=== PATIENT | male | born 1940 | race Caucasian/White ===

== ENCOUNTER 2020-10-13 16:04 | Inpatient (IN) | payer BC ==
[2020-10-13] MEDS ORDERED: ONDANSETRON 4 MG/2 ML VIAL IVPUSH ONE (16:39)
[2020-10-13] MEDS ORDERED: SODIUM CHLORIDE 0.9% 500 ML INFUS.BAG IV ONE ×2 (16:39→17:53)
[2020-10-13] MEDS ORDERED: FAMOTIDINE 20 MG/50 ML IVPB 20 MG/50 ML MG IVPB ONE ×2 (16:39→16:45)
[2020-10-13] MEDS ORDERED: ONDANSETRON 4 MG/2 ML VIAL ONE (16:45)
[2020-10-13 17:08] LABS: BASO % 0.4 % (0-2.0); EOS % 0.9 % (0-4.5); HEMATOCRIT 35.8 % (35.4-49); HEMOGLOBIN 12.4 GM/dL (11.7-16.9); LYMPH % 12.4 % (8-40); MCH 34.7 pg (25.7-33.7); MCHC 34.6 g/dl (32.0-35.9); MEAN CELL VOLUME 100.3 fl (80-96); MEAN PLT VOLUME 7.5 fl (7.5-11.1); MONO % 13.5 % (3.8-10.2); NEUT % 72.8 % (42.8-82.8); PLATELET COUNT 175 10^3/uL (134-434); RBC 3.57 M/mm3 (4.00-5.60); RDW 14.3 % (11.9-15.9); WHITE BLOOD COUNT 3.2 K/mm3 (4.0-10.0)
[2020-10-13 17:39] LABS: ALBUMIN 3.5 g/dl (3.4-5.0)
[2020-10-13 17:40] LABS: BLOOD UREA NITROGEN 17.6 mg/dL (7-18); MAGNESIUM 1.6 mg/dL (1.8-2.4)
[2020-10-13 17:43] LABS: CREATININE 1.2 mg/dL (0.55-1.3); PHOSPHOROUS 2.4 mg/dL (2.5-4.9)
[2020-10-13 17:44] LABS: TOT PROT 6.4 g/dl (6.4-8.2)
[2020-10-13] MEDS ORDERED: METOCLOPRAMIDE HCL INJECTION 10 MG/2 ML VIAL IVPUSH ONE (17:51)
[2020-10-13] MEDS ORDERED: morphine CARPU-JECT 4 MG/1 ML DISP.SYRIN IVPUSH ONE (17:52)
[2020-10-13] MEDS ORDERED: SODIUM CHLORIDE 1,000 ML IV STA (17:59)
[2020-10-13] MEDS ORDERED: morphine SULFATE 4 MG/ML VIAL ONE (18:03)
[2020-10-13] MEDS ORDERED: METOCLOPRAMIDE HCL INJECTION 10 MG/2 ML VIAL ONE (18:03)
[2020-10-13] MEDS ORDERED: MAGNESIUM SULF 50% (8.12 MEQ/2 ML-1 GM VIAL) IVPB ONE (19:00)
[2020-10-13 19:32] LABS: EPI CELLS 7 /uL (0-25.1); HYALINE CASTS 3 /uL (0-3.1); PH,URINE 5.5 (5.0-8.0); URINE APPEARANCE CLEAR; URINE BACTERIA 58 /uL (0-1359); URINE BILIRUBIN NEGATIVE (NEGATIVE); URINE COLOR YELLOW; URINE GLUCOSE (UA) NEGATIVE (NEGATIVE); URINE KETONE TRACE (NEGATIVE); URINE LEUK ESTERASE 1+ (NEGATIVE); URINE NITRITE NEGATIVE (NEGATIVE); URINE PROTEIN 2+ (NEGATIVE); URINE RBC 10 /uL (0-23.9); URINE UROBILINOGEN 0.2 mg/dL (0.2-1.0); URINE WBC 30 /uL (0-25.8)
[2020-10-13] MEDS ORDERED: MAGNESIUM SULFATE IN WATER 2 GM/50 ML IVPB IVPB ONE (19:46)
[2020-10-13] MEDS ORDERED: VANCOMYCIN 1 GM in D5W (PRE-DOCKED) 1,000 MG/250 ML IVPB ONE (22:43)
[2020-10-13] MEDS ORDERED: PIPERACILLIN/TAZOB 4.5 GM 4.5 GM in DEXTROSE 5%-WATER 100 ML IVPB ONE (22:43)
[2020-10-13] MEDS ORDERED: VANCOMYCIN 1 GRAM (PRE-DOCKED) 1,000 MG/250 ML BAG IVPB ONE (22:48)
[2020-10-13] MEDS ORDERED: PIPERACILLIN/TAZOB 4.5 GM 4.5 GM/100 ML BAG IVPB ONE (23:29)
[2020-10-14] MEDS ORDERED: ONDANSETRON 4 MG/2 ML VIAL IVPUSH PRN (03:14)
[2020-10-14] MEDS ORDERED: DEXTROSE 5%-0.45% SALINE 1,000 ML IV SCH (03:15)
[2020-10-14] MEDS ORDERED: ALBUTEROL SO4 0.083% IH SOL 2.5 MG/3 ML VIAL.NEB. NEB ONE (05:38)
[2020-10-14 09:51] LABS: BASO % 0.1 % (0-2.0); EOS % 0.1 % (0-4.5); HEMOGLOBIN 10.3 GM/dL (11.7-16.9); LYMPH % 8.3 % (8-40); MCH 35.2 pg (25.7-33.7); MCHC 35.6 g/dl (32.0-35.9); MEAN CELL VOLUME 98.9 fl (80-96); MEAN PLT VOLUME 7.7 fl (7.5-11.1); MONO % 11.7 % (3.8-10.2); NEUT % 79.8 % (42.8-82.8); PLATELET COUNT 143 10^3/uL (134-434); RBC 2.93 M/mm3 (4.00-5.60); RDW 13.8 % (11.9-15.9); WHITE BLOOD COUNT 2.9 K/mm3 (4.0-10.0)
[2020-10-14 10:17] LABS: CALCIUM 7.1 mg/dL (8.5-10.1)
[2020-10-14 10:18] LABS: BLOOD UREA NITROGEN 20.8 mg/dL (7-18)
[2020-10-14 10:21] LABS: CREATININE 1.3 mg/dL (0.55-1.3)
[2020-10-14 10:22] LABS: BILIRUBIN,TOTAL 1.3 mg/dL (0.2-1)
[2020-10-14 10:23] LABS: TOT PROT 4.8 g/dl (6.4-8.2)
[2020-10-14 10:24] LABS: ALBUMIN 2.7 g/dl (3.4-5.0)
[2020-10-14 12:30] LABS: ANISOCYTOSIS 1+; MACROCYTOSIS 0; OVALOCYTE 1+; PLATELET ESTIMATE DECREASED; TOXIC GRANULATION 2+
[2020-10-14] MEDS ORDERED: ALPRAZolam 1 MG TABLET PO ONE (13:39)
[2020-10-14] MEDS ORDERED: ONDANSETRON *ODT* 4 MG TABLET SL PRN (13:41)
[2020-10-14] MEDS ORDERED: SODIUM CHLORIDE 500 ML IV STA (16:05)
[2020-10-14] MEDS ORDERED: NAPH,MB-DB/K PH,MBDB POWDER PACKET PO SCH (16:15)
[2020-10-14] MEDS ORDERED: POTASSIUM CHLORIDE TABS 20 MEQ TABLET.ER (FP) PO ONE (16:30)
[2020-10-14] MEDS ORDERED: DEXTROSE 5%-WATER - 50 ML IVPB ONE (17:25)
[2020-10-14] MEDS ORDERED: PIPERACILLIN/TAZOBACTAM 3.375 GM VIAL IVPB ONE (17:25)
[2020-10-14] MEDS ORDERED: PT OWN MED DRAWER 7, Y5N ONE ×3 (19:12→21:18)
[2020-10-14] MEDS ORDERED: LOPERAMIDE HCL 2 MG CAPSULE PO PRN (19:40)
[2020-10-14] MEDS ORDERED: LOPERAMIDE HCL 2 MG CAPSULE PO ONE (19:45)
[2020-10-14] MEDS: DEXTROSE 5%-NORMAL SALINE 1,000 ML IV SCH (20:05)
[2020-10-14] MEDS: ONDANSETRON 4 MG/2 ML VIAL IVPB PRN (20:05)
[2020-10-14] MEDS: PIPERACILLIN/TAZOB 3.375 GM 3.375 GM in DEXTROSE 5%-WATER - 50 ML IVPB SCH (20:38)
[2020-10-14] MEDS: CARVEDILOL 25 MG TABLET (FP) PO SCH (21:15)
[2020-10-14] MEDS: SACUBITRIL/VALSARTAN 49 MG-51 MG TABLET PO SCH (21:20)
[2020-10-14] MEDS: APIXABAN 5 MG TABLET PO SCH (21:20)
[2020-10-14] MEDS: ATORVASTATIN CA 40 MG TABLET (FP) PO SCH (21:20)
[2020-10-14] MEDS: MINERAL OIL/PET HY-PHL TOPICAL OINTMENT 454 GM JAR TP SCH (22:31)
[2020-10-15] MEDS ORDERED: PIPERACILLIN/TAZOBACTAM 3.375 GM VIAL IVPB ONE ×3 (02:22→15:14)
[2020-10-15] MEDS ORDERED: DEXTROSE 5%-WATER - 50 ML IVPB ONE ×3 (02:22→15:14)
[2020-10-15] MEDS: PIPERACILLIN/TAZOB 3.375 GM 3.375 GM in DEXTROSE 5%-WATER - 50 ML IVPB SCH ×3 (02:26→17:24)
[2020-10-15] MEDS: DEXTROSE 5%-NORMAL SALINE 1,000 ML IV SCH (06:55)
[2020-10-15] MEDS ORDERED: PT OWN MED DRAWER 7, Y5N ONE ×4 (09:12→21:08)
[2020-10-15] MEDS: APIXABAN 5 MG TABLET PO SCH ×2 (09:31→21:12)
[2020-10-15] MEDS: CARVEDILOL 25 MG TABLET (FP) PO SCH ×2 (09:31→21:12)
[2020-10-15] MEDS: FAMOTIDINE 40 MG TABLET PO SCH (09:31)
[2020-10-15] MEDS: MECLIZINE HCL 25 MG TABLET (FP) PO PRN ×2 (09:31→21:59)
[2020-10-15] MEDS: SACUBITRIL/VALSARTAN 49 MG-51 MG TABLET PO SCH ×2 (09:32→21:59)
[2020-10-15 09:33] LABS: HEMATOCRIT 31.4 % (35.4-49); HEMOGLOBIN 10.8 GM/dL (11.7-16.9); MCH 34.9 pg (25.7-33.7); MCHC 34.5 g/dl (32.0-35.9); MEAN CELL VOLUME 101.1 fl (80-96); PLATELET COUNT 171 10^3/uL (134-434); RBC 3.11 M/mm3 (4.00-5.60); RDW 14.4 % (11.9-15.9); WHITE BLOOD COUNT 4.8 K/mm3 (4.0-10.0)
[2020-10-15] MEDS: MINERAL OIL/PET HY-PHL TOPICAL OINTMENT 454 GM JAR TP SCH ×2 (09:33→21:19)
[2020-10-15 09:35] LABS: EOS % 0.9 % (0-4.5); HEMATOCRIT 30.9 % (35.4-49); HEMOGLOBIN 10.9 GM/dL (11.7-16.9); LYMPH % 8.7 % (8-40); MCH 35.4 pg (25.7-33.7); MCHC 35.2 g/dl (32.0-35.9); MEAN CELL VOLUME 100.6 fl (80-96); MEAN PLT VOLUME 7.9 fl (7.5-11.1); MONO % 14.6 % (3.8-10.2); NEUT % 75.8 % (42.8-82.8); PLATELET COUNT 170 10^3/uL (134-434); RBC 3.07 M/mm3 (4.00-5.60); RDW 13.8 % (11.9-15.9); WHITE BLOOD COUNT 4.7 K/mm3 (4.0-10.0)
[2020-10-15 09:40] LABS: INR 1.94 (0.83-1.09); PROTHROMBIN TIME (PATIENT) 23.4 SEC (9.7-13.0)
[2020-10-15 09:42] LABS: ACTIVATED PTT 27.6 SECONDS (25.2-36.5)
[2020-10-15] MEDS ORDERED: PIPERACILLIN/TAZOB 3.375 GM 3.375 GM in DEXTROSE 5%-WATER - 50 ML IVPB SCH (10:00)
[2020-10-15] MEDS ORDERED: FUROSEMIDE 40 MG TABLET (FP) PO SCH (10:00)
[2020-10-15 10:04] LABS: ALBUMIN 2.7 g/dl (3.4-5.0); BLOOD UREA NITROGEN 27.2 mg/dL (7-18); CALCIUM 7.3 mg/dL (8.5-10.1); MAGNESIUM 2.2 mg/dL (1.8-2.4)
[2020-10-15 10:05] LABS: BILIRUBIN,TOTAL 0.7 mg/dL (0.2-1); TOT PROT 4.9 g/dl (6.4-8.2)
[2020-10-15 10:07] LABS: CREATININE 1.5 mg/dL (0.55-1.3)
[2020-10-15 11:29] LABS: ANISOCYTOSIS 0; MACROCYTOSIS 0; PLATELET ESTIMATE NORMAL
[2020-10-15] MEDS ORDERED: D5-1/2NS+10 MEQ KCL - 10 MEQ/1,000 ML INFUS.BAG IV SCH (12:15)
[2020-10-15] MEDS: DEXTROSE 5%-LACTATED RINGERS 1,000 ML IV SCH (15:48)
[2020-10-15] MEDS: ZOLPIDEM TARTRATE 5 MG TABLET PO PRN (21:12)
[2020-10-15] MEDS: ATORVASTATIN CA 40 MG TABLET (FP) PO SCH (21:12)
[2020-10-16] MEDS ORDERED: PIPERACILLIN/TAZOBACTAM 3.375 GM VIAL IVPB ONE ×2 (01:07→09:14)
[2020-10-16] MEDS ORDERED: DEXTROSE 5%-WATER - 50 ML IVPB ONE ×2 (01:07→09:15)
[2020-10-16] MEDS: PIPERACILLIN/TAZOB 3.375 GM 3.375 GM in DEXTROSE 5%-WATER - 50 ML IVPB SCH ×2 (01:19→09:18)
[2020-10-16] MEDS ORDERED: PT OWN MED DRAWER 7, Y5N ONE (02:31)
[2020-10-16] MEDS: DEXTROSE 5%-LACTATED RINGERS 1,000 ML IV SCH ×2 (05:36→18:34)
[2020-10-16] MEDS: LOPERAMIDE HCL 2 MG CAPSULE PO PRN ×4 (07:53→18:35)
[2020-10-16 08:40] LABS: BASO % 0.1 % (0-2.0); EOS % 2.4 % (0-4.5); HEMATOCRIT 28.8 % (35.4-49); HEMOGLOBIN 10.1 GM/dL (11.7-16.9); LYMPH % 10.6 % (8-40); MCH 35.2 pg (25.7-33.7); MEAN CELL VOLUME 100.6 fl (80-96); MEAN PLT VOLUME 7.9 fl (7.5-11.1); NEUT % 68.9 % (42.8-82.8); PLATELET COUNT 171 10^3/uL (134-434); RBC 2.86 M/mm3 (4.00-5.60); RDW 14.1 % (11.9-15.9); WHITE BLOOD COUNT 3.8 K/mm3 (4.0-10.0)
[2020-10-16] MEDS: SACUBITRIL/VALSARTAN 49 MG-51 MG TABLET PO SCH ×2 (09:07→21:04)
[2020-10-16] MEDS: CARVEDILOL 25 MG TABLET (FP) PO SCH ×2 (09:07→21:04)
[2020-10-16] MEDS ORDERED: DEXTROSE 5%-LACTATED RINGERS 1,000 ML IV SCH (09:08)
[2020-10-16 09:10] LABS: CALCIUM 7.1 mg/dL (8.5-10.1)
[2020-10-16 09:11] LABS: ALBUMIN 2.3 g/dl (3.4-5.0); BLOOD UREA NITROGEN 20.3 mg/dL (7-18); MAGNESIUM 2.3 mg/dL (1.8-2.4)
[2020-10-16] MEDS: FAMOTIDINE 40 MG TABLET PO SCH (09:12)
[2020-10-16] MEDS: MINERAL OIL/PET HY-PHL TOPICAL OINTMENT 454 GM JAR TP SCH ×2 (09:12→21:04)
[2020-10-16] MEDS: APIXABAN 5 MG TABLET PO SCH ×2 (09:12→21:04)
[2020-10-16 09:14] LABS: CREATININE 1.1 mg/dL (0.55-1.3); PHOSPHOROUS 1.6 mg/dL (2.5-4.9)
[2020-10-16 09:15] LABS: BILIRUBIN,TOTAL 0.5 mg/dL (0.2-1); TOT PROT 4.4 g/dl (6.4-8.2)
[2020-10-16 11:06] LABS: ANISOCYTOSIS 0; HELMET CELLS 0; HOWELL-JOLLY BODIES 0; MACROCYTOSIS 0; OVALOCYTE 0; PLATELET ESTIMATE NORMAL; ROULEAU 0; SICKELED CELLS 0; TARGET CELLS 0; TEAR DROP CELLS 0; TOXIC GRANULATION 0
[2020-10-16] MEDS ORDERED: LOPERAMIDE HCL 2 MG CAPSULE PO STA (18:48)
[2020-10-16] MEDS ORDERED: LOPERAMIDE HCL 2 MG CAPSULE PO PRN ×2 (18:52→23:00)
[2020-10-16] MEDS: ONDANSETRON 4 MG/2 ML VIAL IVPB PRN (20:18)
[2020-10-16] MEDS ORDERED: LOPERAMIDE HCL 2 MG CAPSULE PO SCH (21:00)
[2020-10-16] MEDS: LOPERAMIDE HCL 2 MG CAPSULE PO SCH ×2 (21:03→22:26)
[2020-10-16] MEDS: ZOLPIDEM TARTRATE 5 MG TABLET PO PRN (21:04)
[2020-10-16] MEDS: ATORVASTATIN CA 40 MG TABLET (FP) PO SCH (21:04)
[2020-10-17] MEDS: LOPERAMIDE HCL 2 MG CAPSULE PO SCH ×3 (01:42→23:22)
[2020-10-17] MEDS ORDERED: LOPERAMIDE HCL 2 MG CAPSULE PO PRN (03:00)
[2020-10-17 09:30] LABS: BASO % 0.1 % (0-2.0); EOS % 2.9 % (0-4.5); HEMATOCRIT 31.8 % (35.4-49); LYMPH % 20.7 % (8-40); MCHC 34.7 g/dl (32.0-35.9); MEAN PLT VOLUME 7.5 fl (7.5-11.1); NEUT % 49.3 % (42.8-82.8); PLATELET COUNT 200 10^3/uL (134-434); RBC 3.15 M/mm3 (4.00-5.60); RDW 14.1 % (11.9-15.9); WHITE BLOOD COUNT 2.9 K/mm3 (4.0-10.0)
[2020-10-17 09:47] LABS: ALBUMIN 2.5 g/dl (3.4-5.0); BLOOD UREA NITROGEN 9.5 mg/dL (7-18); CALCIUM 7.1 mg/dL (8.5-10.1); MAGNESIUM 1.9 mg/dL (1.8-2.4)
[2020-10-17 09:50] LABS: CREATININE 0.9 mg/dL (0.55-1.3); PHOSPHOROUS 1.6 mg/dL (2.5-4.9)
[2020-10-17 09:51] LABS: BILIRUBIN,TOTAL 0.4 mg/dL (0.2-1); TOT PROT 4.8 g/dl (6.4-8.2)
[2020-10-17] MEDS ORDERED: PT OWN MED DRAWER 7, Y5N ONE ×4 (10:11→15:59)
[2020-10-17] MEDS: APIXABAN 5 MG TABLET PO SCH ×2 (10:18→21:03)
[2020-10-17] MEDS: SACUBITRIL/VALSARTAN 49 MG-51 MG TABLET PO SCH ×2 (10:19→21:04)
[2020-10-17] MEDS: MINERAL OIL/PET HY-PHL TOPICAL OINTMENT 454 GM JAR TP SCH ×2 (10:20→21:02)
[2020-10-17] MEDS: FAMOTIDINE 40 MG TABLET PO SCH (10:20)
[2020-10-17 10:41] LABS: ANISOCYTOSIS 0; MACROCYTOSIS 1+; OVALOCYTE 1+; PLATELET ESTIMATE NORMAL
[2020-10-17] MEDS: CARVEDILOL 25 MG TABLET (FP) PO SCH ×2 (11:05→21:03)
[2020-10-17] MEDS: DEXTROSE 5%-LACTATED RINGERS 1,000 ML IV SCH ×2 (11:10→15:47)
[2020-10-17 12:07] LABS: HEP B CORE AB, TOT Negative (Negative)
[2020-10-17] MEDS ORDERED: CAPECITABINE 500 MG TABLET PO ONE ×2 (12:30→18:00)
[2020-10-17] MEDS ORDERED: OCTREOTIDE ACETATE 50 MCG/1 ML - 1 ML VIAL IVPUSH SCH (12:45)
[2020-10-17] MEDS ORDERED: POTASSIUM CHLORIDE TABS 20 MEQ TABLET.ER (FP) PO ONE (12:48)
[2020-10-17] MEDS ORDERED: CALCIUM (OYSTER SHELL) 500 MG TABLET (FP) PO ONE (12:50)
[2020-10-17] MEDS ORDERED: NAPH,MB-DB/K PH,MBDB POWDER PACKET PO ONE (12:51)
[2020-10-17] MEDS ORDERED: MAGNESIUM SULF 50% (8.12 MEQ/2 ML-1 GM VIAL) IVPB ONE (13:23)
[2020-10-17] MEDS ORDERED: POTASSIUM PHOSPHATE 15 MM in SODIUM CHLORIDE 250 ML IVPB ONE (15:30)
[2020-10-17] MEDS ORDERED: DIPHENOXYLATE 2.5/ATROPINE.025 1 COMBO TABLET PO SCH (16:00)
[2020-10-17] MEDS ORDERED: LOPERAMIDE HCL 2 MG CAPSULE PO SCH (16:00)
[2020-10-17] MEDS ORDERED: OCTREOTIDE ACETATE 50 MCG/1 ML - 1 ML VIAL SQ SCH (17:00)
[2020-10-17] MEDS ORDERED: FOLIC ACID INJECTION - 1 MG, THIAMINE HCL 100 MG, MULTIVIT INJECTION ADULT 10 ML in SOD... IVPB ONE (17:04)
[2020-10-17] MEDS: HYDROCORTISONE 2.5% TOPICAL CREAM 30 GM TUBE TP SCH (21:02)
[2020-10-17] MEDS: ATORVASTATIN CA 40 MG TABLET (FP) PO SCH (21:03)
[2020-10-17] MEDS: NYSTATIN 100,000 UNIT/GM TOPICAL CREAM 15 GM TUBE TP SCH (21:05)
[2020-10-17] MEDS: ZOLPIDEM TARTRATE 5 MG TABLET PO PRN (21:17)
[2020-10-18] MEDS: OCTREOTIDE ACETATE 100 MCG/1 ML SQ SCH ×3 (01:01→17:25)
[2020-10-18] MEDS: LOPERAMIDE HCL 2 MG CAPSULE PO SCH ×8 (02:29→23:25)
[2020-10-18] MEDS: DEXTROSE 5%-LACTATED RINGERS 1,000 ML IV SCH ×4 (07:55→20:41)
[2020-10-18 09:23] LABS: BLOOD UREA NITROGEN 10.2 mg/dL (7-18); CALCIUM 7.7 mg/dL (8.5-10.1); MAGNESIUM 1.7 mg/dL (1.8-2.4)
[2020-10-18] MEDS ORDERED: PT OWN MED DRAWER 7, Y5N ONE ×3 (09:23→21:08)
[2020-10-18 09:25] LABS: CREATININE 1.3 mg/dL (0.55-1.3)
[2020-10-18 09:26] LABS: PHOSPHOROUS 3.2 mg/dL (2.5-4.9)
[2020-10-18] MEDS: SACUBITRIL/VALSARTAN 49 MG-51 MG TABLET PO SCH ×2 (09:54→21:04)
[2020-10-18] MEDS: APIXABAN 5 MG TABLET PO SCH ×2 (09:54→21:04)
[2020-10-18] MEDS: CARVEDILOL 25 MG TABLET (FP) PO SCH ×2 (09:54→21:05)
[2020-10-18] MEDS: FAMOTIDINE 40 MG TABLET PO SCH (09:55)
[2020-10-18] MEDS: HYDROCORTISONE 2.5% TOPICAL CREAM 30 GM TUBE TP SCH ×2 (09:57→21:05)
[2020-10-18] MEDS: MINERAL OIL/PET HY-PHL TOPICAL OINTMENT 454 GM JAR TP SCH ×2 (09:57→21:05)
[2020-10-18] MEDS: NYSTATIN 100,000 UNIT/GM TOPICAL CREAM 15 GM TUBE TP SCH ×2 (09:58→21:05)
[2020-10-18] MEDS: ONDANSETRON 4 MG/2 ML VIAL IVPB PRN ×2 (13:17→21:09)
[2020-10-18] MEDS ORDERED: POTASSIUM CHLORIDE TABS 10 MEQ TABLET.ER (FP) PO ONE (14:48)
[2020-10-18] MEDS ORDERED: MAGNESIUM SULF 50% (8.12 MEQ/2 ML-1 GM VIAL) IVPB ONE (14:48)
[2020-10-18] MEDS ORDERED: DEXTROSE 5%-LACTATED RINGERS 1,000 ML IV SCH (14:54)
[2020-10-18] MEDS: ACETAMINOPHEN WITH CODEINE 300MG/30MG TABLET PO SCH (17:23)
[2020-10-18] MEDS: ALBUTEROL SO4 0.083% IH SOL 2.5 MG/3 ML VIAL.NEB. NEB PRN (20:40)
[2020-10-18] MEDS ORDERED: MAG HYDROX/AL HYDROX/SIMETH 30 ML UNIT-DOSE CUP PO PRN (20:45)
[2020-10-18] MEDS: ATORVASTATIN CA 40 MG TABLET (FP) PO SCH (21:04)
[2020-10-18] MEDS: BANATROL PLUS POWDER PACKET PO SCH (21:04)
[2020-10-18] MEDS: ZOLPIDEM TARTRATE 5 MG TABLET PO PRN (21:09)
[2020-10-19] MEDS ORDERED: PT OWN MED DRAWER 7, Y5N ONE ×2 (01:50→05:20)
[2020-10-19] MEDS: OCTREOTIDE ACETATE 100 MCG/1 ML SQ SCH ×2 (02:05→10:32)
[2020-10-19] MEDS: LOPERAMIDE HCL 2 MG CAPSULE PO SCH ×3 (02:06→10:25)
[2020-10-19] MEDS: ALBUTEROL SO4 0.083% IH SOL 2.5 MG/3 ML VIAL.NEB. NEB PRN (04:00)
[2020-10-19] MEDS: BANATROL PLUS POWDER PACKET PO SCH (05:22)
[2020-10-19] MEDS: ONDANSETRON 4 MG/2 ML VIAL IVPB PRN (05:42)
[2020-10-19] MEDS: DEXTROSE 5%-LACTATED RINGERS 1,000 ML IV SCH (05:42)
[2020-10-19 09:15] LABS: BLOOD UREA NITROGEN 19.2 mg/dL (7-18)
[2020-10-19 09:16] LABS: CALCIUM 7.6 mg/dL (8.5-10.1)
[2020-10-19 09:18] LABS: CREATININE 1.3 mg/dL (0.55-1.3)
[2020-10-19 09:19] LABS: PHOSPHOROUS 2.8 mg/dL (2.5-4.9)
[2020-10-19 09:20] LABS: BILIRUBIN,TOTAL 0.5 mg/dL (0.2-1); TOT PROT 4.2 g/dl (6.4-8.2)
[2020-10-19] MEDS: NYSTATIN 100,000 UNIT/GM TOPICAL CREAM 15 GM TUBE TP SCH (10:28)
[2020-10-19] MEDS: MINERAL OIL/PET HY-PHL TOPICAL OINTMENT 454 GM JAR TP SCH ×2 (10:28→22:17)
[2020-10-19] MEDS: HYDROCORTISONE 2.5% TOPICAL CREAM 30 GM TUBE TP SCH (10:29)
[2020-10-19] MEDS: APIXABAN 5 MG TABLET PO SCH (10:32)
[2020-10-19] MEDS: CARVEDILOL 25 MG TABLET (FP) PO SCH (10:32)
[2020-10-19] MEDS: SACUBITRIL/VALSARTAN 49 MG-51 MG TABLET PO SCH ×2 (10:32→23:18)
[2020-10-19] MEDS: FAMOTIDINE 40 MG TABLET PO SCH (10:32)
[2020-10-19] MEDS: ACETAMINOPHEN WITH CODEINE 300MG/30MG TABLET PO SCH (10:33)
[2020-10-19 12:32] LABS: EOS % 0.2 % (0-4.5); HEMATOCRIT 36.3 % (35.4-49); HEMOGLOBIN 12.7 GM/dL (11.7-16.9); LYMPH % 3.2 % (8-40); MCH 34.5 pg (25.7-33.7); MCHC 34.9 g/dl (32.0-35.9); MEAN CELL VOLUME 98.8 fl (80-96); MEAN PLT VOLUME 7.6 fl (7.5-11.1); MONO % 2.3 % (3.8-10.2); NEUT % 94.3 % (42.8-82.8); PLATELET COUNT 246 10^3/uL (134-434); RBC 3.68 M/mm3 (4.00-5.60); RDW 14.9 % (11.9-15.9); WHITE BLOOD COUNT 3.6 K/mm3 (4.0-10.0)
[2020-10-19 12:54] LABS: BLOOD UREA NITROGEN 21.3 mg/dL (7-18); CALCIUM 7.7 mg/dL (8.5-10.1); MAGNESIUM 2.3 mg/dL (1.8-2.4)
[2020-10-19 12:57] LABS: CREATININE 1.5 mg/dL (0.55-1.3)
[2020-10-19 12:59] LABS: BILIRUBIN,TOTAL 0.5 mg/dL (0.2-1); TOT PROT 4.3 g/dl (6.4-8.2)
[2020-10-19 13:44] LABS: LACTIC ACID 4.3 mmol/L (0.4-2.0)
[2020-10-19] MEDS ORDERED: MEROPENEM 500 MG in DEXTROSE 5%-WATER 100 ML IVPB ONE (14:45)
[2020-10-19] MEDS ORDERED: DEXTROSE 5%-NORMAL SALINE 1,000 ML IV SCH ×3 (16:15→20:09)
[2020-10-19] MEDS: PIPERACILLIN/TAZOB 3.375 GM 3.375 GM in DEXTROSE 5%-WATER - 50 ML IVPB SCH ×2 (16:34→17:09)
[2020-10-19] MEDS ORDERED: DEXTROSE 5%-WATER - 50 ML IVPB ONE ×2 (16:34→20:54)
[2020-10-19] MEDS ORDERED: PIPERACILLIN/TAZOBACTAM 3.375 GM VIAL IVPB ONE ×2 (16:34→20:54)
[2020-10-19] MEDS: PANTOPRAZOLE SODIUM 40 MG VIAL IVPB SCH (16:35)
[2020-10-19] MEDS ORDERED: METOPROLOL TARTRATE 5 MG/5 ML VIAL IVPUSH PRN ×2 (16:46→16:48)
[2020-10-19 17:57] LABS: LACTIC ACID 4.6 mmol/L (0.4-2.0)
[2020-10-19] MEDS ORDERED: ENOXAPARIN NA (PORCINE) 80 MG/0.8 ML DISP.SYRIN SQ SCH (18:15)
[2020-10-19] MEDS ORDERED: MAG HYDROX/AL HYDROX/SIMETH 30 ML UNIT-DOSE CUP PO PRN (18:22)
[2020-10-19] MEDS ORDERED: ONDANSETRON 4 MG/2 ML VIAL IVPB PRN (18:22)
[2020-10-19] MEDS ORDERED: SODIUM CHLORIDE 0.9% 500 ML INFUS.BAG IV ONE ×3 (18:22→23:22)
[2020-10-19] MEDS ORDERED: MECLIZINE HCL 25 MG TABLET (FP) PO PRN (18:22)
[2020-10-19] MEDS ORDERED: ZOLPIDEM TARTRATE 5 MG TABLET PO PRN (18:22)
[2020-10-19] MEDS ORDERED: CARVEDILOL 3.125 MG TABLET (FP) PO SCH (22:00)
[2020-10-19 22:05] LABS: ALBUMIN 1.8 g/dl (3.4-5.0); BLOOD UREA NITROGEN 24.6 mg/dL (7-18); CALCIUM 7.3 mg/dL (8.5-10.1)
[2020-10-19 22:09] LABS: CREATININE 1.6 mg/dL (0.55-1.3)
[2020-10-19 22:10] LABS: BILIRUBIN,TOTAL 0.6 mg/dL (0.2-1); TOT PROT 3.9 g/dl (6.4-8.2)
[2020-10-19] MEDS: MUPIROCIN 2% TOPICAL OINTMENT FOR DECOLONIZATION NS SCH (22:17)
[2020-10-19] MEDS: CHLORHEXIDINE GLUCONATE 4% CLEANSER FOR DECOLONIZATION TP SCH (22:17)
[2020-10-19] MEDS: ENOXAPARIN NA (PORCINE) 80 MG/0.8 ML DISP.SYRIN SQ SCH (22:17)
[2020-10-19] MEDS: ATORVASTATIN CA 40 MG TABLET (FP) PO SCH (23:19)
[2020-10-20] MEDS: NYSTATIN 100,000 UNIT/GM TOPICAL CREAM 15 GM TUBE TP SCH ×3 (00:01→21:26)
[2020-10-20] MEDS ORDERED: SODIUM CHLORIDE 0.9% 500 ML INFUS.BAG IV ONE ×4 (00:34→23:58)
[2020-10-20] MEDS: PIPERACILLIN/TAZOB 3.375 GM 3.375 GM in DEXTROSE 5%-WATER - 50 ML IVPB SCH ×3 (02:06→18:07)
[2020-10-20] MEDS ORDERED: ALBUTEROL SO4 2.5/IPRATROPIUM 0.5 INH SOL 3 ML VIAL.NEB. NEB ONE ×2 (03:06→07:48)
[2020-10-20] MEDS ORDERED: DEXTROSE 5%-NORMAL SALINE 1,000 ML IV SCH ×3 (06:21→08:00)
[2020-10-20 06:41] LABS: BASO % 0.1 % (0-2.0); EOS % 2.4 % (0-4.5); HEMATOCRIT 31.8 % (35.4-49); HEMOGLOBIN 11.1 GM/dL (11.7-16.9); LYMPH % 5.8 % (8-40); MCH 34.6 pg (25.7-33.7); MEAN CELL VOLUME 98.6 fl (80-96); MEAN PLT VOLUME 8.2 fl (7.5-11.1); MONO % 91.3 % (3.8-10.2); NEUT % 0.4 % (42.8-82.8); PLATELET COUNT 195 10^3/uL (134-434); RBC 3.22 M/mm3 (4.00-5.60); RDW 14.7 % (11.9-15.9); WHITE BLOOD COUNT 2.4 K/mm3 (4.0-10.0)
[2020-10-20 06:52] LABS: CHLORIDE 110 mmol/L (98-107); SODIUM 138 mmol/L (136-145)
[2020-10-20 06:58] LABS: ALBUMIN 1.5 g/dl (3.4-5.0); ANION GAP 9 MMOL/L (8-16); BLOOD UREA NITROGEN 23.2 mg/dL (7-18); CO2 20 mmol/L (21-32); GLUCOSE,RANDOM 98 mg/dL (74-106)
[2020-10-20 07:00] LABS: CREATININE 1.3 mg/dL (0.55-1.3); PHOSPHOROUS 2.4 mg/dL (2.5-4.9)
[2020-10-20 07:01] LABS: BILIRUBIN,TOTAL 0.5 mg/dL (0.2-1); SGOT/AST 12 U/L (15-37); SGPT/ALT 9 U/L (13-61)
[2020-10-20 07:02] LABS: TOT PROT 3.4 g/dl (6.4-8.2)
[2020-10-20 07:03] LABS: ALK PHOS 32 U/L (45-117)
[2020-10-20 07:07] LABS: CALCIUM 6.7 mg/dL (8.5-10.1)
[2020-10-20 07:21] LABS: LACTIC ACID 2.6 mmol/L (0.4-2.0)
[2020-10-20] MEDS ORDERED: POTASSIUM PHOSPHATE 30 MM in SODIUM CHLORIDE 250 ML IVPB ONE (07:51)
[2020-10-20] MEDS ORDERED: AMINO ACIDS 4.25%/D5W 1,000 ML IV SCH (08:00)
[2020-10-20] MEDS: ALBUTEROL SO4 0.083% IH SOL 2.5 MG/3 ML VIAL.NEB. NEB PRN ×2 (08:35→23:55)
[2020-10-20] MEDS ORDERED: PIPERACILLIN/TAZOBACTAM 3.375 GM VIAL IVPB ONE ×2 (09:32→17:33)
[2020-10-20] MEDS ORDERED: DEXTROSE 5%-WATER - 50 ML IVPB ONE ×2 (09:32→17:33)
[2020-10-20] MEDS ORDERED: PT OWN MED DRAWER 7, Y5N ONE ×2 (09:32→10:40)
[2020-10-20] MEDS: PANTOPRAZOLE SODIUM 40 MG VIAL IVPB SCH (09:38)
[2020-10-20] MEDS: MUPIROCIN 2% TOPICAL OINTMENT FOR DECOLONIZATION NS SCH ×2 (09:39→21:26)
[2020-10-20] MEDS: ENOXAPARIN NA (PORCINE) 80 MG/0.8 ML DISP.SYRIN SQ SCH ×2 (09:40→21:23)
[2020-10-20] MEDS: MINERAL OIL/PET HY-PHL TOPICAL OINTMENT 454 GM JAR TP SCH ×2 (09:42→21:24)
[2020-10-20] MEDS ORDERED: FAMOTIDINE 20 MG TABLET PO SCH (10:00)
[2020-10-20] MEDS ORDERED: ACETAMINOPHEN WITH CODEINE 300MG/30MG TABLET PO SCH (10:00)
[2020-10-20 10:14] LABS: TOXIC GRANULATION 1+
[2020-10-20 10:15] LABS: MACROCYTOSIS 1+
[2020-10-20] MEDS: SACUBITRIL/VALSARTAN 49 MG-51 MG TABLET PO SCH ×2 (11:29→21:26)
[2020-10-20] MEDS: HYDROCORTISONE 2.5% TOPICAL CREAM 30 GM TUBE TP SCH ×3 (11:30→21:24)
[2020-10-20] MEDS: AMINO ACIDS 4.25%/D5W 1,000 ML IV SCH (13:30)
[2020-10-20] MEDS ORDERED: SODIUM CHLORIDE 250 ML IV STA (13:36)
[2020-10-20 14:08] LABS: BASO % 0.1 % (0-2.0); EOS % 1.5 % (0-4.5); HEMATOCRIT 33.4 % (35.4-49); HEMOGLOBIN 11.5 GM/dL (11.7-16.9); LYMPH % 3.9 % (8-40); MCH 33.8 pg (25.7-33.7); MCHC 34.4 g/dl (32.0-35.9); MEAN CELL VOLUME 98.3 fl (80-96); MEAN PLT VOLUME 7.8 fl (7.5-11.1); MONO % 3.8 % (3.8-10.2); NEUT % 90.7 % (42.8-82.8); PLATELET COUNT 183 10^3/uL (134-434); RDW 14.7 % (11.9-15.9); WHITE BLOOD COUNT 2.3 K/mm3 (4.0-10.0)
[2020-10-20] MEDS ORDERED: ACETAMINOPHEN 1000 MG/100 ML VIAL (NON FORMULARY) IVPB ONE (15:06)
[2020-10-20] MEDS: MULTIVIT INJ. ADULT COMBO WITH VIT K 1 COMBO 10 ML VIAL IV SCH (15:28)
[2020-10-20 16:09] VITALS: BMI 26.4
[2020-10-20 17:20] LABS: ANISOCYTOSIS 1+; MACROCYTOSIS 1+; OVALOCYTE 1+; PLATELET ESTIMATE NORMAL; TOXIC GRANULATION 1+
[2020-10-20] MEDS ORDERED: DEXTROSE 5%-NORMAL SALINE 500 ML IV ONE (17:58)
[2020-10-20] MEDS: SODIUM CHLORIDE 1,000 ML IV SCH (18:56)
[2020-10-20 19:49] LABS: LACTIC ACID 3.3 mmol/L (0.4-2.0)
[2020-10-20] MEDS ORDERED: SODIUM CHLORIDE 500 ML IV STA (20:07)
[2020-10-20] MEDS: ATORVASTATIN CA 40 MG TABLET (FP) PO SCH (21:24)
[2020-10-20] MEDS: CHLORHEXIDINE GLUCONATE 4% CLEANSER FOR DECOLONIZATION TP SCH (21:26)
[2020-10-20 22:57] LABS: EPI CELLS 14 /uL (0-25.1); HYALINE CASTS 5 /uL (0-3.1); PH,URINE 5.5 (5.0-8.0); URINE APPEARANCE CLOUDY; URINE BACTERIA 3 /uL (0-1359); URINE BILIRUBIN NEGATIVE (NEGATIVE); URINE COLOR DK YELLOW; URINE GLUCOSE (UA) TRACE (NEGATIVE); URINE KETONE NEGATIVE (NEGATIVE); URINE LEUK ESTERASE NEGATIVE (NEGATIVE); URINE NITRITE NEGATIVE (NEGATIVE); URINE PROTEIN 2+ (NEGATIVE); URINE RBC 11 /uL (0-23.9); URINE UROBILINOGEN 0.2 mg/dL (0.2-1.0); URINE WBC 11 /uL (0-25.8)
[2020-10-20 23:51] LABS: LACTIC ACID 3.6 mmol/L (0.4-2.0)
[2020-10-21] MEDS ORDERED: PT OWN MED DRAWER 7, Y5N ONE ×4 (00:38→18:51)
[2020-10-21] MEDS: AMINO ACIDS 4.25%/D5W 1,000 ML IV SCH ×2 (00:40→12:07)
[2020-10-21] MEDS ORDERED: PIPERACILLIN/TAZOBACTAM 3.375 GM VIAL IVPB ONE ×3 (01:35→18:35)
[2020-10-21] MEDS ORDERED: DEXTROSE 5%-WATER - 50 ML IVPB ONE ×3 (01:36→18:36)
[2020-10-21] MEDS: PIPERACILLIN/TAZOB 3.375 GM 3.375 GM in DEXTROSE 5%-WATER - 50 ML IVPB SCH ×3 (01:37→18:38)
[2020-10-21 04:10] LABS: LACTIC ACID 3.6 mmol/L (0.4-2.0)
[2020-10-21] MEDS ORDERED: SODIUM CHLORIDE 0.9% 500 ML INFUS.BAG IV ONE ×2 (04:22→15:15)
[2020-10-21 07:17] LABS: HEMATOCRIT 31.2 % (35.4-49); MCH 34.3 pg (25.7-33.7); MCHC 35.2 g/dl (32.0-35.9); MEAN CELL VOLUME 97.4 fl (80-96); PLATELET COUNT 148 10^3/uL (134-434); RDW 14.5 % (11.9-15.9); WHITE BLOOD COUNT 2.8 K/mm3 (4.0-10.0)
[2020-10-21 07:46] LABS: LACTIC ACID 3.3 mmol/L (0.4-2.0)
[2020-10-21 08:38] LABS: CREATININE 0.9 mg/dL (0.55-1.3); GLUCOSE,RANDOM 92 mg/dL (74-106); SGPT/ALT 8 U/L (13-61); SODIUM 139 mmol/L (136-145)
[2020-10-21 08:39] LABS: ALBUMIN 1.4 g/dl (3.4-5.0); ANION GAP 8 MMOL/L (8-16); BILIRUBIN,TOTAL 0.5 mg/dL (0.2-1); BLOOD UREA NITROGEN 21.4 mg/dL (7-18); CHLORIDE 113 mmol/L (98-107); CO2 18 mmol/L (21-32); MAGNESIUM 1.7 mg/dL (1.8-2.4); SGOT/AST 12 U/L (15-37); TOT PROT 3.3 g/dl (6.4-8.2)
[2020-10-21 08:41] LABS: ALK PHOS 29 U/L (45-117)
[2020-10-21 08:42] LABS: CALCIUM 6.6 mg/dL (8.5-10.1); PHOSPHOROUS 1.2 mg/dL (2.5-4.9)
[2020-10-21 08:48] LABS: ADD RBC MORPHOLOGY YES
[2020-10-21 09:54] LABS: ANISOCYTOSIS 1+; MACROCYTOSIS 0; OVALOCYTE 1+; PLATELET ESTIMATE DECREASED; TOXIC GRANULATION 2+
[2020-10-21] MEDS: HYDROCORTISONE 2.5% TOPICAL CREAM 30 GM TUBE TP SCH ×2 (11:00→21:54)
[2020-10-21] MEDS: PANTOPRAZOLE SODIUM 40 MG VIAL IVPB SCH (11:00)
[2020-10-21] MEDS: NYSTATIN 100,000 UNIT/GM TOPICAL CREAM 15 GM TUBE TP SCH ×2 (11:00→21:55)
[2020-10-21] MEDS: MINERAL OIL/PET HY-PHL TOPICAL OINTMENT 454 GM JAR TP SCH ×2 (11:00→21:57)
[2020-10-21] MEDS: ENOXAPARIN NA (PORCINE) 80 MG/0.8 ML DISP.SYRIN SQ SCH ×2 (11:00→21:59)
[2020-10-21] MEDS: MUPIROCIN 2% TOPICAL OINTMENT FOR DECOLONIZATION NS SCH ×2 (11:00→21:56)
[2020-10-21] MEDS: SACUBITRIL/VALSARTAN 49 MG-51 MG TABLET PO SCH ×3 (11:00→21:55)
[2020-10-21] MEDS ORDERED: MORPHINE SULFATE 2 MG/ML VIAL IVPUSH ONE (11:00)
[2020-10-21] MEDS ORDERED: POTASSIUM CHLORIDE 20 MEQ PREMIX IVPB 100 ML IVPB ONE (11:18)
[2020-10-21] MEDS ORDERED: MAGNESIUM OXIDE 400 MG TABLET (FP) PO ONE (11:20)
[2020-10-21] MEDS: MULTIVIT INJ. ADULT COMBO WITH VIT K 1 COMBO 10 ML VIAL IV SCH (11:22)
[2020-10-21] MEDS ORDERED: POTASSIUM PHOSPHATE 30 MM in SODIUM CHLORIDE 250 ML IVPB ONE (11:23)
[2020-10-21 11:47] LABS: HEMATOCRIT 31.9 % (35.4-49); MCHC 34.4 g/dl (32.0-35.9); MEAN CELL VOLUME 98.8 fl (80-96); MEAN PLT VOLUME 8.5 fl (7.5-11.1); PLATELET COUNT 142 10^3/uL (134-434); RBC 3.22 M/mm3 (4.00-5.60); RDW 14.7 % (11.9-15.9); WHITE BLOOD COUNT 3.9 K/mm3 (4.0-10.0)
[2020-10-21] MEDS ORDERED: MAGNESIUM 1GM/D5W 100ML - 100 ML IVPB IVPB ONE (12:15)
[2020-10-21] MEDS ORDERED: ALBUTEROL SO4 2.5/IPRATROPIUM 0.5 INH SOL 3 ML VIAL.NEB. NEB PRN (12:38)
[2020-10-21] MEDS ORDERED: ACETAMINOPHEN 1000 MG/100 ML VIAL (NON FORMULARY) IVPB PRN ×2 (13:04→13:50)
[2020-10-21] MEDS ORDERED: MORPHINE SULFATE 2 MG/ML VIAL IVPUSH PRN (14:00)
[2020-10-21] MEDS ORDERED: VASOPRESSIN 20 UNITS/ML VIAL IV ONE (16:08)
[2020-10-21] MEDS: VASOPRESSIN 40 UNITS in SODIUM CHLORIDE 98 ML IVPB SCH (16:10)
[2020-10-21 17:41] LABS: ANISOCYTOSIS 1+; MACROCYTOSIS 0; OVALOCYTE 1+; PLATELET ESTIMATE DECREASED
[2020-10-21] MEDS: SODIUM CHLORIDE 1,000 ML IV SCH (18:50)
[2020-10-21] MEDS ORDERED: SODIUM CHLORIDE 1,000 ML IV STA (20:25)
[2020-10-21 21:04] LABS: EOS % 1.8 % (0-4.5); HEMATOCRIT 30.7 % (35.4-49); HEMOGLOBIN 10.7 GM/dL (11.7-16.9); MCH 34.2 pg (25.7-33.7); MEAN CELL VOLUME 97.8 fl (80-96); MEAN PLT VOLUME 8.4 fl (7.5-11.1); PLATELET COUNT 120 10^3/uL (134-434); RBC 3.13 M/mm3 (4.00-5.60); RDW 14.8 % (11.9-15.9); WHITE BLOOD COUNT 4.4 K/mm3 (4.0-10.0)
[2020-10-21 21:31] LABS: LACTIC ACID 3.7 mmol/L (0.4-2.0)
[2020-10-21 21:32] LABS: ANISOCYTOSIS 2+; MACROCYTOSIS 2+; OVALOCYTE 1+; PLATELET ESTIMATE DECREASED
[2020-10-21 21:34] LABS: TOXIC GRANULATION 1+
[2020-10-21 21:44] LABS: LYMPH % 1.9 % (8-40); MONO % 1.9 % (3.8-10.2); NEUT % 38.7 % (42.8-82.8)
[2020-10-21 21:48] LABS: ERYTHROCYTE SEDIMENTATION RATE 20 mm/hr (0-20)
[2020-10-21] MEDS: CHLORHEXIDINE GLUCONATE 4% CLEANSER FOR DECOLONIZATION TP SCH (21:55)
[2020-10-21] MEDS: ATORVASTATIN CA 40 MG TABLET (FP) PO SCH (21:58)
[2020-10-22] MEDS ORDERED: PT OWN MED DRAWER 7, Y5N ONE ×2 (00:36→09:29)
[2020-10-22] MEDS: AMINO ACIDS 4.25%/D5W 1,000 ML IV SCH ×2 (00:57→14:39)
[2020-10-22] MEDS ORDERED: PIPERACILLIN/TAZOBACTAM 3.375 GM VIAL IVPB ONE ×3 (01:31→17:11)
[2020-10-22] MEDS ORDERED: DEXTROSE 5%-WATER - 50 ML IVPB ONE ×3 (01:32→17:12)
[2020-10-22] MEDS: PIPERACILLIN/TAZOB 3.375 GM 3.375 GM in DEXTROSE 5%-WATER - 50 ML IVPB SCH ×3 (01:33→17:19)
[2020-10-22 02:11] LABS: LACTIC ACID 3.5 mmol/L (0.4-2.0)
[2020-10-22] MEDS ORDERED: SODIUM CHLORIDE 0.9% 500 ML INFUS.BAG IV ONE (02:27)
[2020-10-22] MEDS ORDERED: SODIUM CHLORIDE 500 ML IV STA (05:24)
[2020-10-22 07:30] LABS: HEMATOCRIT 32.2 % (35.4-49); HEMOGLOBIN 11.2 GM/dL (11.7-16.9); MCH 34.2 pg (25.7-33.7); MCHC 34.7 g/dl (32.0-35.9); MEAN CELL VOLUME 98.8 fl (80-96); MEAN PLT VOLUME 9.1 fl (7.5-11.1); PLATELET COUNT 107 10^3/uL (134-434); RBC 3.26 M/mm3 (4.00-5.60); RDW 15.1 % (11.9-15.9); WHITE BLOOD COUNT 5.4 K/mm3 (4.0-10.0)
[2020-10-22 07:57] LABS: LACTIC ACID 2.9 mmol/L (0.4-2.0)
[2020-10-22 08:39] LABS: ANISOCYTOSIS 2+; MACROCYTOSIS 2+; PLATELET ESTIMATE DECREASED
[2020-10-22 08:41] LABS: ALBUMIN 1.4 g/dl (3.4-5.0); ALK PHOS 30 U/L (45-117); ANION GAP 7 MMOL/L (8-16); BILIRUBIN,TOTAL 0.7 mg/dL (0.2-1); BLOOD UREA NITROGEN 27.2 mg/dL (7-18); CALCIUM 6.7 mg/dL (8.5-10.1); CHLORIDE 114 mmol/L (98-107); CO2 17 mmol/L (21-32); GLUCOSE,RANDOM 90 mg/dL (74-106); MAGNESIUM 1.8 mg/dL (1.8-2.4); PHOSPHOROUS 1.4 mg/dL (2.5-4.9); SGOT/AST 19 U/L (15-37); SGPT/ALT 8 U/L (13-61); SODIUM 138 mmol/L (136-145); TOT PROT 3.3 g/dl (6.4-8.2)
[2020-10-22] MEDS: KCL 10 MEQ IVPB 10 MEQ/100 ML INFUS.BAG IVPB SCH ×2 (09:36→11:18)
[2020-10-22] MEDS: MINERAL OIL/PET HY-PHL TOPICAL OINTMENT 454 GM JAR TP SCH ×2 (09:40→21:18)
[2020-10-22] MEDS: HYDROCORTISONE 2.5% TOPICAL CREAM 30 GM TUBE TP SCH ×2 (09:40→21:19)
[2020-10-22] MEDS: MUPIROCIN 2% TOPICAL OINTMENT FOR DECOLONIZATION NS SCH ×2 (09:40→21:21)
[2020-10-22] MEDS: NYSTATIN 100,000 UNIT/GM TOPICAL CREAM 15 GM TUBE TP SCH ×2 (09:41→21:19)
[2020-10-22] MEDS: ENOXAPARIN NA (PORCINE) 80 MG/0.8 ML DISP.SYRIN SQ SCH ×2 (09:41→21:26)
[2020-10-22] MEDS: SACUBITRIL/VALSARTAN 49 MG-51 MG TABLET PO SCH ×2 (09:41→21:21)
[2020-10-22] MEDS: PANTOPRAZOLE SODIUM 40 MG VIAL IVPB SCH (09:42)
[2020-10-22] MEDS: MULTIVIT INJ. ADULT COMBO WITH VIT K 1 COMBO 10 ML VIAL IV SCH (14:40)
[2020-10-22] MEDS: VASOPRESSIN 40 UNITS in SODIUM CHLORIDE 98 ML IVPB SCH (17:19)
[2020-10-22] MEDS ORDERED: POTASSIUM PHOSPHATE 30 MM in SODIUM CHLORIDE 250 ML IVPB ONE (18:03)
[2020-10-22] MEDS ORDERED: LACTATED RINGERS IVPB ONE (18:05)
[2020-10-22] MEDS ORDERED: POTASSIUM PHOSPHATE IVPB ONE (18:05)
[2020-10-22] MEDS ORDERED: DEXTROSE IVPB ONE (18:05)
[2020-10-22] MEDS ORDERED: POTASSIUM PHOSPHATE 30 MM in DEXTROSE 5%-WATER - 250 ML IVPB ONE (18:20)
[2020-10-22] MEDS: SODIUM CHLORIDE 1,000 ML IV SCH (20:27)
[2020-10-22] MEDS: CHLORHEXIDINE GLUCONATE 4% CLEANSER FOR DECOLONIZATION TP SCH (21:21)
[2020-10-22] MEDS: ATORVASTATIN CA 40 MG TABLET (FP) PO SCH (21:26)
[2020-10-23] MEDS ORDERED: PIPERACILLIN/TAZOBACTAM 3.375 GM VIAL IVPB ONE (01:06)
[2020-10-23] MEDS ORDERED: DEXTROSE 5%-WATER - 50 ML IVPB ONE (01:06)
[2020-10-23] MEDS: PIPERACILLIN/TAZOB 3.375 GM 3.375 GM in DEXTROSE 5%-WATER - 50 ML IVPB SCH (01:09)
[2020-10-23] MEDS: AMINO ACIDS 4.25%/D5W 1,000 ML IV SCH (01:16)
[2020-10-23] MEDS ORDERED: PT OWN MED DRAWER 7, Y5N ONE (02:47)
[2020-10-23 04:21] VITALS: TEMP 98
[2020-10-23 06:07] VITALS: BP 101/68; PULSE 98
== END 2020-10-23 08:24 | disposition short-term general hospital (02) | DRG 393 ==
LOC: JER 16:04 → JERBED 23:31 → J8W 10-14 03:40 → JICU 10-19 17:55
PROVIDERS: ADMIT Internal Medicine; ATTEND Family Medicine
PROC: 02HV33Z Insertion of Infusion Device into Superior Vena Cava, Percutaneous Approach (ICD-10-PCS; principal; 2020-10-20)
PROC: B548ZZA Ultrasonography of Superior Vena Cava, Guidance (ICD-10-PCS; 2020-10-20)
PROC: 0D9670Z Drainage of Stomach with Drainage Device, Via Natural or Artificial Opening (ICD-10-PCS; 2020-10-20)
DX: K52.1 Toxic gastroenteritis and colitis (principal); A41.9 Sepsis, unspecified organism; G93.41 Metabolic encephalopathy; C21.0 Malignant neoplasm of anus, unspecified; E87.1 Hypo-osmolality and hyponatremia; I48.19 Other persistent atrial fibrillation; I50.22 Chronic systolic (congestive) heart failure; N17.9 Acute kidney failure, unspecified; K56.609 Unspecified intestinal obstruction, unspecified as to partial versus complete obstruction; K56.7 Ileus, unspecified; I13.0 Hypertensive heart and chronic kidney disease with heart failure and stage 1 through stage 4 chronic kidney disease, or unspecified chronic kidney disease; Z79.01 Long term (current) use of anticoagulants; E78.5 Hyperlipidemia, unspecified; R93.5 Abnormal findings on diagnostic imaging of other abdominal regions, including retroperitoneum; I25.2 Old myocardial infarction; Z86.73 Personal history of transient ischemic attack (TIA), and cerebral infarction without residual deficits; D64.9 Anemia, unspecified; T45.1X5A Adverse effect of antineoplastic and immunosuppressive drugs, initial encounter; I25.10 Atherosclerotic heart disease of native coronary artery without angina pectoris; Z95.0 Presence of cardiac pacemaker; E87.6 Hypokalemia; E83.39 Other disorders of phosphorus metabolism; L30.9 Dermatitis, unspecified; E86.1 Hypovolemia; D70.9 Neutropenia, unspecified; N18.9 Chronic kidney disease, unspecified; E86.0 Dehydration
CPT/HCPCS: 36415; 71045-TC-FY; 71250-TC; 74018-TC-FY; 74021-TC-FY; 74174-TC; 74176-TC; 74177-TC; 76705-TC; 76870-TC; 80048; 80053; 81003; 82140; 83605; 83690; 83735; 84100; 85025; 85027; 85384; 85610; 85651; 85730; 86140; 86704; 86706; 86707; 86708; 86709; 86803; 86850; 86900; 86901; 87040; 87045; 87046; 87077; 87086; 87177; 87186; 87205; 87209; 87324; 87340; 87427; 87449; 93005; 93010; 93306-TC; 93971-TC; 94640; 99285-25; C9803; J0131; Q9967; U0003; U0005